=== PATIENT | male | born 1970 | race Two or more races ===

== ENCOUNTER 2021-11-04 14:29 | Inpatient (IN) | payer MEDICAID, OTHER ==
[~2021-11-04] VITALS: Ht 175.3 cm; Wt 109.0 kg
[2021-11-04] MEDS ORDERED: SODIUM CHLORIDE 0.9% 1,000 ML IV ONE ×2 (16:45→18:00)
[2021-11-04] MEDS ORDERED: ACETAMINOPHEN 325 MG TAB PO ONE (16:45)
[2021-11-04] MEDS ORDERED: ONDANSETRON HCL 4 MG/2 ML VIAL ONE (17:10)
[2021-11-04] MEDS ORDERED: ONDANSETRON HCL 4 MG/2 ML VIAL IV ONE (17:15)
[2021-11-04 18:22] LABS: Basophils # (auto) 0 10 ^3/uL (0-0.2); Eosinophils # (auto) 0.1 10 ^3/uL (0-0.8); Hematocrit 34.6 % (41.0-53.0); Lymphocytes # (auto) 0.3 10 ^3/uL (0.4-5.4); Neutrophils # (auto) 15.5 10 ^3/uL (1.6-8.6); Neutrophils % (auto) 95.6 % (37.0-80.0); White Blood Cell 16.2 10^3/uL (4.4-10.8)
[2021-11-04 18:23] LABS: Basophils % (auto) 0.1 % (0.0-2.0); Eosinophils % (auto) 0.3 % (0.0-7.0); Hemoglobin 11.3 g/dL (13.5-17.5); Lymphocytes % (auto) 1.6 % (10.0-50.0); Mean Corpuscular Hemoglobin 25.7 pg (28.0-32.0); Mean Corpuscular Hgb Conc. 32.8 g/dL (32.0-36.0); Mean Corpuscular Volume 78.3 fL (80.0-100.0); Monocytes # (auto) 0.4 10 ^3/uL (0-1.3); Monocytes % (auto) 2.4 % (0.0-12.0); Red Blood Cells 4.41 10^6/uL (4.5-5.90)
[2021-11-04 18:30] LABS: Calcium 7.4 mg/dL (8.5-10.1); Potassium 4.1 mmol/L (3.5-5.1)
[2021-11-04 18:39] LABS: BUN/Creatinine Ratio 14.4; Bilirubin, Total 0.5 mg/dL (0.2-1.0); CRP High Sensitivity 17.7 mg/dL (< 0.3); Total Protein 6.2 g/dL (6.4-8.2)
[2021-11-04 18:48] LABS: Urine Amorphous Crystal MOD /hpf (None Seen); Urine Bacteria FEW /hpf (None Seen); Urine Blood 2+ /uL (Negative); Urine Mucus FEW (None Seen); Urine Specific Gravity 1.027 (1.001-1.035); Urine WBC <1 /hpf (0 - 3)
[2021-11-04] MEDS ORDERED: cefTRIAXone 1GM/50ML D5W 50 ML IV ONE (19:30)
[2021-11-04] MEDS ORDERED: AZITHROMYCIN 500MG/ 250ML 250 ML IV ONE (19:30)
[2021-11-04] MEDS ORDERED: NITROGLYCERIN 0.4 MG SL TAB SL PRN (22:15)
[2021-11-04] MEDS ORDERED: MORPHINE SULFATE INJECTION 2 MG/ML SYRG IV PRN (22:15)
[2021-11-04] MEDS ORDERED: REMDESIVIR PER PHARMACY 0 ML IV SCH (22:15)
[2021-11-04] MEDS: SODIUM CHLORIDE 0.9% 1,000 ML IV SCH (22:44)
[2021-11-04] MEDS: HYDROcodone-ACET 5/325MG TAB PO PRN (23:31)
[2021-11-05] MEDS: PIPERACILLIN-TAZOB 2.25GM 50 ML IV SCH ×2 (03:14→06:10)
[2021-11-05] MEDS ORDERED: CLINDAMYCIN 900MG IV 50 ML IV SCH (06:00)
[2021-11-05] MEDS: HEPARIN SODIUM (PORCINE) 5000 UNITS/ML 1ML VIAL SC SCH ×3 (06:16→21:55)
[2021-11-05] MEDS ORDERED: DexAMETHasone SOD PHOS 10MG/1ML VIAL INJ IV SCH (10:00)
[2021-11-05 10:50] LABS: Basophils # (auto) 0 10 ^3/uL (0-0.2); Eosinophils # (auto) 0.3 10 ^3/uL (0-0.8); Eosinophils % (auto) 2.2 % (0.0-7.0); Hematocrit 32.6 % (41.0-53.0); Hemoglobin 11.1 g/dL (13.5-17.5); Mean Corpuscular Hemoglobin 26.2 pg (28.0-32.0); Monocytes # (auto) 0.4 10 ^3/uL (0-1.3); White Blood Cell 11.4 10^3/uL (4.4-10.8)
[2021-11-05 10:52] LABS: Basophils % (auto) 0.2 % (0.0-2.0); Lymphocytes # (auto) 0.5 10 ^3/uL (0.4-5.4); Lymphocytes % (auto) 4.5 % (10.0-50.0); Mean Corpuscular Hgb Conc. 34.1 g/dL (32.0-36.0); Monocytes % (auto) 3.4 % (0.0-12.0); Neutrophils # (auto) 10.3 10 ^3/uL (1.6-8.6); Neutrophils % (auto) 89.7 % (37.0-80.0); Red Blood Cells 4.23 10^6/uL (4.5-5.90); Red Cell Distribution Width 15.6 % (11.8-14.3)
[2021-11-05 11:06] LABS: Albumin 2.1 g/dL (3.4-5.0); Calcium 7.3 mg/dL (8.5-10.1); Potassium 4.1 mmol/L (3.5-5.1)
[2021-11-05 11:12] LABS: BUN/Creatinine Ratio 23.6; Bilirubin, Total 0.5 mg/dL (0.2-1.0); Total Protein 5.9 g/dL (6.4-8.2)
[2021-11-05] MEDS: ZINC SULFATE 220mg CAP or TAB PO SCH (11:29)
[2021-11-05] MEDS: ASCORBIC ACID 500 MG TAB PO SCH ×2 (11:40→21:54)
[2021-11-05] MEDS ORDERED: VANCOMYCIN PER PHARMACY 0 MG IV SCH (12:15)
[2021-11-05] MEDS: SODIUM CHLORIDE 0.9% 1,000 ML IV SCH ×2 (13:13→17:13)
[2021-11-05] MEDS: VANCOMYCIN 1GM/250ML 250 ML IV SCH (13:39)
[2021-11-05] MEDS: HYDROcodone-ACET 5/325MG TAB PO PRN (15:35)
[2021-11-05 15:37] VITALS: BP 132/64
[2021-11-05 17:10] VITALS: BP 132/64
[2021-11-05 22:00] VITALS: BP 101/49
[2021-11-05] MEDS ORDERED: ACETAMINOPHEN 325 MG TAB PO PRN (22:00)
[2021-11-05] MEDS: levoFLOXacin 500MG 100 ML IV SCH (22:30)
[2021-11-06] MEDS: SODIUM CHLORIDE 0.9% 1,000 ML IV SCH ×2 (01:40→12:49)
[2021-11-06] MEDS: VANCOMYCIN 1GM/250ML 250 ML IV SCH ×2 (01:40→12:49)
[2021-11-06] MEDS: HYDROcodone-ACET 5/325MG TAB PO PRN ×3 (04:15→17:26)
[2021-11-06 05:00] VITALS: BP 109/60
[2021-11-06] MEDS: HEPARIN SODIUM (PORCINE) 5000 UNITS/ML 1ML VIAL SC SCH ×2 (06:21→12:53)
[2021-11-06 08:00] LABS: Basophils # (auto) 0 10 ^3/uL (0-0.2); Eosinophils # (auto) 0.2 10 ^3/uL (0-0.8); Monocytes # (auto) 0.6 10 ^3/uL (0-1.3); White Blood Cell 9.4 10^3/uL (4.4-10.8)
[2021-11-06 08:04] LABS: Basophils % (auto) 0.2 % (0.0-2.0); Eosinophils % (auto) 2.4 % (0.0-7.0); Hematocrit 29.1 % (41.0-53.0); Hemoglobin 10.2 g/dL (13.5-17.5); Lymphocytes # (auto) 0.7 10 ^3/uL (0.4-5.4); Lymphocytes % (auto) 7.9 % (10.0-50.0); Mean Corpuscular Hemoglobin 26.8 pg (28.0-32.0); Mean Corpuscular Hgb Conc. 35.1 g/dL (32.0-36.0); Mean Corpuscular Volume 76.3 fL (80.0-100.0); Monocytes % (auto) 5.9 % (0.0-12.0); Neutrophils # (auto) 7.9 10 ^3/uL (1.6-8.6); Neutrophils % (auto) 83.6 % (37.0-80.0); Red Blood Cells 3.81 10^6/uL (4.5-5.90); Red Cell Distribution Width 16.1 % (11.8-14.3)
[2021-11-06 08:41] VITALS: BP 111/60
[2021-11-06] MEDS: ASCORBIC ACID 500 MG TAB PO SCH (08:41)
[2021-11-06] MEDS: ONDANSETRON HCL 4 MG/2 ML VIAL IV PRN (08:41)
[2021-11-06] MEDS: levoFLOXacin 500MG 100 ML IV SCH (08:42)
[2021-11-06] MEDS: ZINC SULFATE 220mg CAP or TAB PO SCH (11:10)
[2021-11-06 13:00] VITALS: BP 118/66
[2021-11-06 17:00] VITALS: BP 101/61
[2021-11-06 22:00] VITALS: BP 131/57
[2021-11-07] MEDS: ASCORBIC ACID 500 MG TAB PO SCH ×3 (01:16→23:26)
[2021-11-07] MEDS: VANCOMYCIN 1GM/250ML 250 ML IV SCH ×3 (01:17→23:40)
[2021-11-07] MEDS: SODIUM CHLORIDE 0.9% 1,000 ML IV SCH ×2 (01:18→09:28)
[2021-11-07] MEDS: HEPARIN SODIUM (PORCINE) 5000 UNITS/ML 1ML VIAL SC SCH ×4 (01:19→23:26)
[2021-11-07 04:57] VITALS: BP 114/72
[2021-11-07 05:37] LABS: Basophils # (auto) 0 10 ^3/uL (0-0.2); Eosinophils # (auto) 0.4 10 ^3/uL (0-0.8); Mean Corpuscular Volume 77.5 fL (80.0-100.0); Monocytes # (auto) 0.6 10 ^3/uL (0-1.3); Neutrophils # (auto) 5.8 10 ^3/uL (1.6-8.6); Red Cell Distribution Width 16.4 % (11.8-14.3); White Blood Cell 7.5 10^3/uL (4.4-10.8)
[2021-11-07 05:42] LABS: Basophils % (auto) 0.4 % (0.0-2.0); Eosinophils % (auto) 4.9 % (0.0-7.0); Hematocrit 32.8 % (41.0-53.0); Lymphocytes # (auto) 0.8 10 ^3/uL (0.4-5.4); Mean Corpuscular Hemoglobin 26.1 pg (28.0-32.0); Mean Corpuscular Hgb Conc. 33.6 g/dL (32.0-36.0); Monocytes % (auto) 7.6 % (0.0-12.0); Neutrophils % (auto) 77.1 % (37.0-80.0); Red Blood Cells 4.24 10^6/uL (4.5-5.90)
[2021-11-07 06:00] LABS: Calcium 8.1 mg/dL (8.5-10.1); Potassium 3.8 mmol/L (3.5-5.1)
[2021-11-07 06:02] LABS: BUN/Creatinine Ratio 21.1
[2021-11-07 09:00] VITALS: BP 120/73
[2021-11-07] MEDS: ZINC SULFATE 220mg CAP or TAB PO SCH (09:27)
[2021-11-07] MEDS: levoFLOXacin 500MG 100 ML IV SCH (09:27)
[2021-11-07] MEDS: ONDANSETRON HCL 4 MG/2 ML VIAL IV PRN (09:27)
[2021-11-07] MEDS: HYDROcodone-ACET 5/325MG TAB PO PRN (09:28)
[2021-11-07 13:00] VITALS: BP 132/78
[2021-11-07 16:41] VITALS: BP 127/72
[2021-11-07] MEDS: MORPHINE SULFATE INJECTION 2 MG/ML SYRG IV PRN (16:55)
[2021-11-07 22:00] VITALS: BP 114/75
[2021-11-08] MEDS: HEPARIN SODIUM (PORCINE) 5000 UNITS/ML 1ML VIAL SC SCH ×2 (06:00→15:56)
[2021-11-08 08:35] LABS: Red Cell Distribution Width 16.3 % (11.8-14.3)
[2021-11-08 08:36] LABS: Hematocrit 33.3 % (41.0-53.0); Hemoglobin 11.4 g/dL (13.5-17.5); Mean Corpuscular Hemoglobin 26.3 pg (28.0-32.0); Mean Corpuscular Hgb Conc. 34.2 g/dL (32.0-36.0); Mean Corpuscular Volume 76.9 fL (80.0-100.0); Red Blood Cells 4.33 10^6/uL (4.5-5.90); White Blood Cell 7.5 10^3/uL (4.4-10.8)
[2021-11-08 08:38] LABS: Basophils % (manual) 0 (0.0-2.0); Blast Cells 0; Metamyelocytes % 0; Promyelocytes % 0; Reactive Lymphocytes 0
[2021-11-08 08:39] LABS: Potassium 3.8 mmol/L (3.5-5.1)
[2021-11-08 08:40] LABS: INR 1.21 (0.9-1.15); Partial Thromboplastin Time 33.6 sec (23.6-33.0)
[2021-11-08 08:46] LABS: BUN/Creatinine Ratio 16.4; Calcium 7.9 mg/dL (8.5-10.1)
[2021-11-08 09:00] VITALS: BP 120/81
[2021-11-08 09:20] LABS: Band Neutrophils % (manual) 5; Eosinophils % (manual) 4 (0-7); Lymphocytes % (manual) 15 (10.0-50.0); Monocytes % (manual) 9 (0-12); Myelocytes % 1
[2021-11-08] MEDS: VANCOMYCIN 1GM/250ML 250 ML IV SCH ×2 (09:33→18:47)
[2021-11-08] MEDS: levoFLOXacin 500MG 100 ML IV SCH (09:34)
[2021-11-08] MEDS: ZINC SULFATE 220mg CAP or TAB PO SCH (09:34)
[2021-11-08] MEDS: ASCORBIC ACID 500 MG TAB PO SCH (09:34)
[2021-11-08] MEDS: HYDROcodone-ACET 5/325MG TAB PO PRN (09:39)
[2021-11-08 12:37] VITALS: BP 126/78
[2021-11-08 17:00] VITALS: BP 121/72
[2021-11-08] MEDS ORDERED: LIDOCAINE 1% (LOCAL ANESTH.) PF 5ml SDV ID ONE (19:15)
[2021-11-08 22:00] VITALS: BP 122/73
[2021-11-09] MEDS: SODIUM CHLOR 0.9% PF (SALINE LOCK) 10ML VIAL/SYR IV SCH ×3 (00:05→22:20)
[2021-11-09] MEDS: ASCORBIC ACID 500 MG TAB PO SCH ×3 (00:05→22:20)
[2021-11-09] MEDS: HEPARIN SODIUM (PORCINE) 5000 UNITS/ML 1ML VIAL SC SCH ×4 (00:06→22:02)
[2021-11-09] MEDS: HYDROcodone-ACET 5/325MG TAB PO PRN ×2 (00:15→10:42)
[2021-11-09 05:25] VITALS: BP 110/75
[2021-11-09] MEDS: VANCOMYCIN 1GM/250ML 250 ML IV SCH ×3 (05:51→22:20)
[2021-11-09 05:53] LABS: Basophils # (auto) 0.1 10 ^3/uL (0-0.2); Eosinophils # (auto) 0.4 10 ^3/uL (0-0.8); Eosinophils % (auto) 6.1 % (0.0-7.0); Hematocrit 31.4 % (41.0-53.0); Hemoglobin 10.7 g/dL (13.5-17.5); Lymphocytes # (auto) 0.8 10 ^3/uL (0.4-5.4); Lymphocytes % (auto) 13.9 % (10.0-50.0); Mean Corpuscular Hemoglobin 26.1 pg (28.0-32.0); Mean Corpuscular Hgb Conc. 33.9 g/dL (32.0-36.0); Monocytes # (auto) 0.8 10 ^3/uL (0-1.3); Monocytes % (auto) 13.8 % (0.0-12.0); Neutrophils % (auto) 65.2 % (37.0-80.0); Nucleated Red Blood Cells % 0.1 %; Red Blood Cells 4.08 10^6/uL (4.5-5.90); Red Cell Distribution Width 16.2 % (11.8-14.3); White Blood Cell 6.1 10^3/uL (4.4-10.8)
[2021-11-09 06:35] LABS: Sodium 139 mmol/L (136-145)
[2021-11-09 06:36] LABS: Anion Gap 10 (5-15); BUN/Creatinine Ratio 16.1; Blood Urea Nitrogen 9 mg/dL (7-18); Calcium 7.9 mg/dL (8.5-10.1); Carbon Dioxide 22 mmol/L (21-32); Chloride 107 mmol/L (98-107); GFR African American 197 mL/min; GFR Non-African American 163 mL/min; Glucose 109 mg/dL (74-106); Potassium 3.3 mmol/L (3.5-5.1)
[2021-11-09 09:00] VITALS: BP 124/64
[2021-11-09] MEDS: ZINC SULFATE 220mg CAP or TAB PO SCH (10:34)
[2021-11-09] MEDS: levoFLOXacin 500MG 100 ML IV SCH (10:34)
[2021-11-09 13:00] VITALS: BP 117/76
[2021-11-09 20:39] VITALS: BP 118/67
[2021-11-09] MEDS: ONDANSETRON HCL 4 MG/2 ML VIAL IV PRN (23:19)
[2021-11-10] VITALS (9 sets, daily range): BP systolic 101–123; BP diastolic 65–76
[2021-11-10] MEDS: HEPARIN SODIUM (PORCINE) 5000 UNITS/ML 1ML VIAL SC SCH ×3 (05:53→21:30)
[2021-11-10] MEDS: VANCOMYCIN 1GM/250ML 250 ML IV SCH (08:22)
[2021-11-10] MEDS ORDERED: PROPOFOL 10 MG/ML 20 ML IV ONE (08:28)
[2021-11-10] MEDS ORDERED: ONDANSETRON HCL 4 MG/2 ML VIAL ONE (08:28)
[2021-11-10] MEDS ORDERED: fentaNYL CITRATE 100 MCG/2 ML VL ONE (08:28)
[2021-11-10] MEDS ORDERED: MIDAZOLAM HCL 2MG/2ML 2ml VIAL (1mg/ml) ONE (08:28)
[2021-11-10 09:13] LABS: Eosinophils # (auto) 0.2 10 ^3/uL (0-0.8); Eosinophils % (auto) 2.1 % (0.0-7.0); Lymphocytes # (auto) 0.8 10 ^3/uL (0.4-5.4); Monocytes # (auto) 0.9 10 ^3/uL (0-1.3); Nucleated Red Blood Cells % 0.1 %; White Blood Cell 7.7 10^3/uL (4.4-10.8)
[2021-11-10 09:14] LABS: Basophils # (auto) 0 10 ^3/uL (0-0.2); Basophils % (auto) 0.6 % (0.0-2.0); Hematocrit 33.9 % (41.0-53.0); Hemoglobin 11.5 g/dL (13.5-17.5); Lymphocytes % (auto) 10.5 % (10.0-50.0); Mean Corpuscular Hemoglobin 26.1 pg (28.0-32.0); Mean Corpuscular Hgb Conc. 33.8 g/dL (32.0-36.0); Mean Corpuscular Volume 77.3 fL (80.0-100.0); Monocytes % (auto) 11.2 % (0.0-12.0); Neutrophils # (auto) 5.8 10 ^3/uL (1.6-8.6); Neutrophils % (auto) 75.6 % (37.0-80.0); Red Blood Cells 4.38 10^6/uL (4.5-5.90); Red Cell Distribution Width 16.8 % (11.8-14.3)
[2021-11-10 09:36] LABS: BUN/Creatinine Ratio 14.3; Potassium 3.6 mmol/L (3.5-5.1)
[2021-11-10] MEDS ORDERED: SODIUM CHLORIDE LOCK 10 ML ONE (09:56)
[2021-11-10] MEDS: ASCORBIC ACID 500 MG TAB PO SCH ×2 (10:00→21:27)
[2021-11-10] MEDS ORDERED: BUPIVACAINE 0.5% P/F INJ 10 ML VIAL ONE (10:00)
[2021-11-10] MEDS: ZINC SULFATE 220mg CAP or TAB PO SCH (10:00)
[2021-11-10] MEDS: MORPHINE SULFATE INJECTION 2 MG/ML SYRG IV PRN ×3 (10:10→21:29)
[2021-11-10] MEDS: levoFLOXacin 500MG 100 ML IV SCH (10:11)
[2021-11-10] MEDS ORDERED: ceFAZolin 1GM VL ONE ×2 (10:41→11:26)
[2021-11-10] MEDS ORDERED: MORPHINE SULFATE 4 MG/ML SYR/VIAL IV PRN (10:45)
[2021-11-10] MEDS ORDERED: HYDROmorphone HCL 2 MG/ML VL IV PRN (10:45)
[2021-11-10] MEDS ORDERED: METOCLOPRAMIDE HCL 5MG/ml INJ 2ml VIAL IV PRN (10:45)
[2021-11-10] MEDS ORDERED: NEOMYCIN-BACITRACIN-POLYM 15GM TOP OINT TOP ONE (12:10)
[2021-11-10] MEDS: SODIUM CHLOR 0.9% PF (SALINE LOCK) 10ML VIAL/SYR IV SCH ×2 (14:41→21:27)
[2021-11-10] MEDS: HYDROcodone-ACET 5/325MG TAB PO PRN (17:04)
[2021-11-11 05:00] VITALS: BP 106/68
[2021-11-11] MEDS: HEPARIN SODIUM (PORCINE) 5000 UNITS/ML 1ML VIAL SC SCH ×3 (05:26→23:07)
[2021-11-11] MEDS: MORPHINE SULFATE INJECTION 2 MG/ML SYRG IV PRN ×3 (05:28→23:09)
[2021-11-11 08:56] LABS: Eosinophils # (auto) 0.1 10 ^3/uL (0-0.8); Lymphocytes # (auto) 0.8 10 ^3/uL (0.4-5.4); Mean Corpuscular Hemoglobin 26.2 pg (28.0-32.0); Neutrophils # (auto) 6.7 10 ^3/uL (1.6-8.6); White Blood Cell 8.8 10^3/uL (4.4-10.8)
[2021-11-11 08:58] LABS: Basophils # (auto) 0.1 10 ^3/uL (0-0.2); Basophils % (auto) 0.6 % (0.0-2.0); Eosinophils % (auto) 0.6 % (0.0-7.0); Hematocrit 29.8 % (41.0-53.0); Hemoglobin 10.2 g/dL (13.5-17.5); Lymphocytes % (auto) 9.3 % (10.0-50.0); Mean Corpuscular Hgb Conc. 34.2 g/dL (32.0-36.0); Mean Corpuscular Volume 76.7 fL (80.0-100.0); Monocytes # (auto) 1.2 10 ^3/uL (0-1.3); Monocytes % (auto) 13.9 % (0.0-12.0); Neutrophils % (auto) 75.6 % (37.0-80.0); Nucleated Red Blood Cells % 0.2 %; Red Blood Cells 3.89 10^6/uL (4.5-5.90); Red Cell Distribution Width 16.7 % (11.8-14.3)
[2021-11-11 09:00] VITALS: BP 130/64
[2021-11-11] MEDS: ZINC SULFATE 220mg CAP or TAB PO SCH (09:11)
[2021-11-11] MEDS: ASCORBIC ACID 500 MG TAB PO SCH ×2 (09:11→23:05)
[2021-11-11] MEDS: CEFTRIAXONE SODIUM 2 GM in D5W 5% 50 ML IV SCH (09:12)
[2021-11-11] MEDS: HYDROcodone-ACET 5/325MG TAB PO PRN ×2 (09:12)
[2021-11-11 09:50] LABS: BUN/Creatinine Ratio 19.7; Calcium 7.8 mg/dL (8.5-10.1); Potassium 3.2 mmol/L (3.5-5.1)
[2021-11-11] MEDS: SODIUM CHLOR 0.9% PF (SALINE LOCK) 10ML VIAL/SYR IV SCH ×2 (10:00→22:46)
[2021-11-11] MEDS: ONDANSETRON HCL 4 MG/2 ML VIAL IV PRN (10:36)
[2021-11-11 12:35] VITALS: BP 125/63
[2021-11-11] MEDS: VANCOMYCIN 1GM/250ML 250 ML IV SCH ×2 (12:45→22:57)
[2021-11-11 16:53] VITALS: BP 111/68
[2021-11-11 23:46] VITALS: BP 110/73
[2021-11-12 05:07] LABS: Basophils # (auto) 0.1 10 ^3/uL (0-0.2); Basophils % (auto) 0.7 % (0.0-2.0); Eosinophils # (auto) 0 10 ^3/uL (0-0.8); Eosinophils % (auto) 0.6 % (0.0-7.0); Hematocrit 30.7 % (41.0-53.0); Hemoglobin 10.6 g/dL (13.5-17.5); Lymphocytes # (auto) 0.7 10 ^3/uL (0.4-5.4); Lymphocytes % (auto) 9.5 % (10.0-50.0); Mean Corpuscular Hemoglobin 26.6 pg (28.0-32.0); Mean Corpuscular Hgb Conc. 34.4 g/dL (32.0-36.0); Mean Corpuscular Volume 77.3 fL (80.0-100.0); Monocytes # (auto) 1.2 10 ^3/uL (0-1.3); Monocytes % (auto) 15.9 % (0.0-12.0); Neutrophils # (auto) 5.7 10 ^3/uL (1.6-8.6); Neutrophils % (auto) 73.3 % (37.0-80.0); Nucleated Red Blood Cells % 0.1 %; Red Blood Cells 3.97 10^6/uL (4.5-5.90); Red Cell Distribution Width 17.3 % (11.8-14.3); White Blood Cell 7.7 10^3/uL (4.4-10.8)
[2021-11-12 05:14] VITALS: BP 117/64
[2021-11-12 05:24] LABS: BUN/Creatinine Ratio 20.3; Calcium 7.7 mg/dL (8.5-10.1)
[2021-11-12] MEDS: HEPARIN SODIUM (PORCINE) 5000 UNITS/ML 1ML VIAL SC SCH ×3 (06:45→22:27)
[2021-11-12] MEDS: VANCOMYCIN 1GM/250ML 250 ML IV SCH ×2 (06:46→17:25)
[2021-11-12] MEDS: HYDROcodone-ACET 5/325MG TAB PO PRN (06:47)
[2021-11-12 09:00] VITALS: BP 89/47
[2021-11-12] MEDS: ZINC SULFATE 220mg CAP or TAB PO SCH (10:19)
[2021-11-12] MEDS: ASCORBIC ACID 500 MG TAB PO SCH ×2 (10:19→22:27)
[2021-11-12] MEDS: SODIUM CHLOR 0.9% PF (SALINE LOCK) 10ML VIAL/SYR IV SCH ×2 (10:19→22:28)
[2021-11-12] MEDS: CEFTRIAXONE SODIUM 2 GM in D5W 5% 50 ML IV SCH (10:25)
[2021-11-12] MEDS: ONDANSETRON HCL 4 MG/2 ML VIAL IV PRN ×2 (11:43→22:28)
[2021-11-12 13:00] VITALS: BP 117/68
[2021-11-12 17:00] VITALS: BP 102/63
[2021-11-12 22:00] VITALS: BP 101/61
[2021-11-13] MEDS: VANCOMYCIN 1GM/250ML 250 ML IV SCH ×2 (03:49→13:46)
[2021-11-13 05:00] VITALS: BP 106/64
[2021-11-13] MEDS: HEPARIN SODIUM (PORCINE) 5000 UNITS/ML 1ML VIAL SC SCH ×2 (06:26→13:51)
[2021-11-13 08:39] VITALS: BP 128/69
[2021-11-13] MEDS: SODIUM CHLOR 0.9% PF (SALINE LOCK) 10ML VIAL/SYR IV SCH (09:33)
[2021-11-13] MEDS: CEFTRIAXONE SODIUM 2 GM in D5W 5% 50 ML IV SCH (09:33)
[2021-11-13] MEDS: ASCORBIC ACID 500 MG TAB PO SCH (09:33)
[2021-11-13] MEDS: ZINC SULFATE 220mg CAP or TAB PO SCH (09:33)
[2021-11-13 09:40] LABS: BUN/Creatinine Ratio 20.8; Calcium 7.8 mg/dL (8.5-10.1)
[2021-11-13 09:43] LABS: Basophils # (auto) 0 10 ^3/uL (0-0.2); Basophils % (auto) 0.7 % (0.0-2.0); Eosinophils # (auto) 0.1 10 ^3/uL (0-0.8); Eosinophils % (auto) 1.1 % (0.0-7.0); Hematocrit 29.9 % (41.0-53.0); Hemoglobin 10.3 g/dL (13.5-17.5); Lymphocytes # (auto) 0.7 10 ^3/uL (0.4-5.4); Lymphocytes % (auto) 10.8 % (10.0-50.0); Mean Corpuscular Hemoglobin 26.4 pg (28.0-32.0); Mean Corpuscular Hgb Conc. 34.2 g/dL (32.0-36.0); Mean Corpuscular Volume 77.2 fL (80.0-100.0); Monocytes # (auto) 1.2 10 ^3/uL (0-1.3); Monocytes % (auto) 17.3 % (0.0-12.0); Neutrophils # (auto) 4.7 10 ^3/uL (1.6-8.6); Neutrophils % (auto) 70.1 % (37.0-80.0); Red Blood Cells 3.88 10^6/uL (4.5-5.90); Red Cell Distribution Width 17.3 % (11.8-14.3); White Blood Cell 6.8 10^3/uL (4.4-10.8)
[2021-11-13 09:54] LABS: Potassium 2.9 mmol/L (3.5-5.1)
[2021-11-13] MEDS ORDERED: POTASSIUM CHL 20 Meq TABLET PO ONE (11:00)
[2021-11-13] MEDS: ONDANSETRON HCL 4 MG/2 ML VIAL IV PRN (11:27)
[2021-11-13] MEDS: POTASSIUM CHL 20MEQ/50ML 50 ML IV SCH ×2 (11:27→13:45)
[2021-11-13 13:00] VITALS: BP 124/62
[2021-11-13 17:00] VITALS: BP 111/75
== END 2021-11-13 19:55 | DRG 364 ==
LOC: ER 14:29 → EDBD 14:29 → TELE 22:08 → CENTRAL 11-05 15:09 → TELE-CENTR 11-05 19:26
PROVIDERS: ADMIT Hospitalist; ATTEND Hospitalist
PROC: 0WJG4ZZ Inspection of Peritoneal Cavity, Percutaneous Endoscopic Approach (ICD-10-PCS; 2021-11-07)
PROC: 02HV33Z Insertion of Infusion Device into Superior Vena Cava, Percutaneous Approach (ICD-10-PCS; 2021-11-08)
PROC: B548ZZA Ultrasonography of Superior Vena Cava, Guidance (ICD-10-PCS; 2021-11-08)
PROC: 0QBL0ZZ Excision of Right Tarsal, Open Approach (ICD-10-PCS; principal; 2021-11-10 10:57)
DX: L03.115 Cellulitis of right lower limb (principal); J18.9 Pneumonia, unspecified organism; E46 Unspecified protein-calorie malnutrition; L97.519 Non-pressure chronic ulcer of other part of right foot with unspecified severity; M86.8X7 Other osteomyelitis, ankle and foot; E86.0 Dehydration; E66.01 Morbid (severe) obesity due to excess calories; J98.11 Atelectasis; L03.116 Cellulitis of left lower limb; Z20.822 Contact with and (suspected) exposure to COVID-19; Z53.8 Procedure and treatment not carried out for other reasons; I10 Essential (primary) hypertension; I89.0 Lymphedema, not elsewhere classified; S81.801A Unspecified open wound, right lower leg, initial encounter; X58.XXXA Exposure to other specified factors, initial encounter; Y93.89 Activity, other specified; Z74.01 Bed confinement status; Z68.37 Body mass index [BMI] 37.0-37.9, adult; Y92.89 Other specified places as the place of occurrence of the external cause; Y99.8 Other external cause status
CPT/HCPCS: 36415; 36569; 71045; 73720; 78582; 80048; 80053; 80202; 81001; 82565; 82728; 83605; 83880; 84484; 85007; 85025; 85027; 85379; 85610; 85730; 86141; 86850; 86900; 86901; 87040; 87070; 87075; 87081; 87205; 87426; 93005; 93306; 93926; 93970; 96361; 96365; 96375; 97110; 97163; 97530; 99291; A4565; G0378; J0690; J0696; J1956; J2250; J2405; J2543; J2704; J3490; J7060

== ENCOUNTER 2022-08-06 14:54 | Inpatient (IN) | payer MEDICAID ==
[~2022-08-06] VITALS: Ht 175.3 cm; Wt 69.7 kg
[2022-08-06] MEDS ORDERED: cefTRIAXone 1GM/50ML D5W 50 ML IV ONE (22:00)
[2022-08-06] MEDS ORDERED: SODIUM CHLORIDE 0.9% 1,000 ML IV ONE ×2 (22:00)
[2022-08-06] MEDS ORDERED: ONDANSETRON HCL 4 MG/2 ML VIAL IV PRN (23:00)
[2022-08-06] MEDS ORDERED: DEXTROSE (50%) 50ML SYRG IV PRN (23:00)
[2022-08-06] MEDS ORDERED: ACETAMINOPHEN 325 MG TAB PO PRN (23:00)
[2022-08-06] MEDS ORDERED: DOCUSATE SOD 100 MG CAP PO PRN (23:00)
[2022-08-06] MEDS: SODIUM CHLORIDE 0.9% 1,000 ML IV SCH (23:00)
[2022-08-06 23:08] LABS: Basophils # (auto) 0 10 ^3/uL (0-0.2); Basophils % (auto) 0.4 % (0.0-2.0); Eosinophils # (auto) 0 10 ^3/uL (0-0.8); Eosinophils % (auto) 0.2 % (0.0-7.0); Lymphocytes # (auto) 0.7 10 ^3/uL (0.4-5.4); Lymphocytes % (auto) 9.8 % (10.0-50.0); Mean Corpuscular Hemoglobin 27.9 pg (28.0-32.0); Mean Corpuscular Hgb Conc. 34.1 g/dL (32.0-36.0); Mean Corpuscular Volume 81.8 fL (80.0-100.0); Monocytes # (auto) 0.5 10 ^3/uL (0-1.3); Monocytes % (auto) 7.5 % (0.0-12.0); Neutrophils # (auto) 5.9 10 ^3/uL (1.6-8.6); Neutrophils % (auto) 82.1 % (37.0-80.0); Nucleated Red Blood Cells % 0.1 %; Red Blood Cells 5.02 10^6/uL (4.5-5.90); Red Cell Distribution Width 15.7 % (11.8-14.3); White Blood Cell 7.2 10^3/uL (4.4-10.8)
[2022-08-06 23:22] LABS: INR 0.98 (0.9-1.15); Partial Thromboplastin Time 29.7 sec (24.6-33.4)
[2022-08-06 23:26] LABS: Albumin 3.2 g/dL (3.4-5.0); Calcium 8.5 mg/dL (8.5-10.1); Potassium 3.9 mmol/L (3.5-5.1)
[2022-08-06 23:29] LABS: Bilirubin, Total 0.4 mg/dL (0.2-1.0); Total Protein 7.3 g/dL (6.4-8.2)
[2022-08-07] MEDS ORDERED: NITROGLYCERIN 0.4 MG SL TAB SL PRN
[2022-08-07] MEDS ORDERED: MORPHINE SULFATE INJ 2 MG/ml SYRG IV PRN
[2022-08-07] MEDS: HYDROcodone-ACET 5/325MG TAB PO PRN (02:50)
[2022-08-07 06:39] LABS: Basophils # (auto) 0 10 ^3/uL (0-0.2); Basophils % (auto) 0.6 % (0.0-2.0); Eosinophils # (auto) 0 10 ^3/uL (0-0.8); Eosinophils % (auto) 0.6 % (0.0-7.0); Hematocrit 37.4 % (41.0-53.0); Lymphocytes # (auto) 0.8 10 ^3/uL (0.4-5.4); Lymphocytes % (auto) 16.8 % (10.0-50.0); Mean Corpuscular Hgb Conc. 34.6 g/dL (32.0-36.0); Monocytes # (auto) 0.4 10 ^3/uL (0-1.3); Monocytes % (auto) 9.3 % (0.0-12.0); Neutrophils # (auto) 3.3 10 ^3/uL (1.6-8.6); Neutrophils % (auto) 72.7 % (37.0-80.0); Nucleated Red Blood Cells % 0.1 %; Red Blood Cells 4.62 10^6/uL (4.5-5.90); Red Cell Distribution Width 15.8 % (11.8-14.3); White Blood Cell 4.6 10^3/uL (4.4-10.8)
[2022-08-07 06:47] LABS: Calcium 8.4 mg/dL (8.5-10.1); Potassium 3.5 mmol/L (3.5-5.1)
[2022-08-07 06:53] LABS: BUN/Creatinine Ratio 27.6; Bilirubin, Total 0.3 mg/dL (0.2-1.0); Total Protein 6.8 g/dL (6.4-8.2)
[2022-08-07] MEDS: InsuLIN REG 1unit/0.01ml Soln (100units/ml) SC SCH ×4 (07:00→22:00)
[2022-08-07] MEDS: ACCU-CHEK COMFORT CURVE STRIP VI SCH ×4 (07:05→22:47)
[2022-08-07] MEDS: SODIUM CHLORIDE 0.9% 1,000 ML IV SCH ×2 (07:42→07:45)
[2022-08-07 08:03] LABS: Urine Bacteria FEW /hpf (None Seen); Urine Blood Negative /uL (Negative); Urine Budding Yeast MODERATE /hpf (None Seen); Urine Specific Gravity 1.024 (1.001-1.035); Urine WBC 213 /hpf (0 - 3)
[2022-08-07] MEDS: cefTRIAXone 1GM/50ML D5W 50 ML IV SCH (09:58)
[2022-08-07] MEDS: ZINC SULFATE 220mg CAP or TAB PO SCH (10:33)
[2022-08-07] MEDS: ASCORBIC ACID 500 MG TAB PO SCH ×2 (10:33→22:48)
[2022-08-07] MEDS: MULTIPLE VITAMIN TAB PO SCH (10:34)
[2022-08-07] MEDS: MEGESTROL ACET 400MG/10ML ORAL SUSP PO SCH (10:34)
[2022-08-07 13:54] VITALS: BP 109/83
[2022-08-07 16:21] VITALS: BP 109/83
[2022-08-07] MEDS ORDERED: OMNIPAQUE ORAL SOLN 500ml 12mg/ml PO ONE (16:56)
[2022-08-07 17:01] LABS: Cholesterol 159 mg/dL (< 200); HDL Cholesterol 49 mg/dL (40-59); LDL Cholesterol 102 mg/dL (< 100); Triglycerides 110 mg/dL (< 150)
[2022-08-07 17:30] LABS: Carcinoembryonic Antigen 1.5 ng/mL (<5.0 OR =); Free T4 (Free Thyroxine) 1.26 ng/dL (0.89-1.76)
[2022-08-07 19:21] LABS: Folate (Folic Acid) 13.82 ng/mL (5.38-24)
[2022-08-08 00:06] VITALS: BP 111/75
[2022-08-08] MEDS: SODIUM CHLORIDE 0.9% 1,000 ML IV SCH (00:25)
[2022-08-08 05:41] VITALS: BP 112/84
[2022-08-08] MEDS: ACCU-CHEK COMFORT CURVE STRIP VI SCH ×4 (06:13→21:48)
[2022-08-08] MEDS: InsuLIN REG 1unit/0.01ml Soln (100units/ml) SC SCH ×4 (06:13→21:48)
[2022-08-08] MEDS: HYDROcodone-ACET 5/325MG TAB PO PRN ×2 (06:16→20:16)
[2022-08-08] MEDS: cefTRIAXone 1GM/50ML D5W 50 ML IV SCH (08:45)
[2022-08-08] MEDS: MEGESTROL ACET 400MG/10ML ORAL SUSP PO SCH (08:45)
[2022-08-08] MEDS: ZINC SULFATE 220mg CAP or TAB PO SCH (08:45)
[2022-08-08] MEDS: ASCORBIC ACID 500 MG TAB PO SCH ×2 (08:46→21:44)
[2022-08-08] MEDS: MULTIPLE VITAMIN TAB PO SCH (08:46)
[2022-08-08 09:00] VITALS: BP 99/67
[2022-08-08] MEDS ORDERED: LACTULOSE 20Gm/30ML SOLN PO ONE (11:30)
[2022-08-08 12:30] VITALS: BP 105/69
[2022-08-08 17:00] VITALS: BP 107/71
[2022-08-08] MEDS: SENNA 8.6 MG TAB PO SCH (21:44)
[2022-08-08] MEDS: MUPIROCIN 2% OINT 15gm or 22gm FOR MRSA NARES EACHNOSTRI SCH (21:54)
[2022-08-09] VITALS (8 sets, daily range): BP systolic 94–120; BP diastolic 65–78
[2022-08-09] MEDS: ACCU-CHEK COMFORT CURVE STRIP VI SCH ×4 (06:39→21:56)
[2022-08-09] MEDS: InsuLIN REG 1unit/0.01ml Soln (100units/ml) SC SCH ×4 (06:48→21:56)
[2022-08-09] MEDS: cefTRIAXone 1GM/50ML D5W 50 ML IV SCH (08:29)
[2022-08-09] MEDS: SODIUM CHLORIDE 0.9% 1,000 ML IV SCH (09:45)
[2022-08-09] MEDS: SENNA 8.6 MG TAB PO SCH ×2 (10:27→21:23)
[2022-08-09] MEDS: MEGESTROL ACET 400MG/10ML ORAL SUSP PO SCH (10:27)
[2022-08-09] MEDS: MULTIPLE VITAMIN TAB PO SCH (10:27)
[2022-08-09] MEDS: ZINC SULFATE 220mg CAP or TAB PO SCH (10:27)
[2022-08-09] MEDS: ASCORBIC ACID 500 MG TAB PO SCH ×2 (10:27→21:23)
[2022-08-09] MEDS: MUPIROCIN 2% OINT 15gm or 22gm FOR MRSA NARES EACHNOSTRI SCH ×2 (11:58→21:23)
[2022-08-09] MEDS: HYDROcodone-ACET 5/325MG TAB PO PRN ×2 (12:05→21:24)
[2022-08-10] MEDS: SODIUM CHLORIDE 0.9% 1,000 ML IV SCH (02:19)
[2022-08-10 05:00] VITALS: BP 110/74
[2022-08-10] MEDS: ACCU-CHEK COMFORT CURVE STRIP VI SCH ×2 (05:54→11:52)
[2022-08-10] MEDS: InsuLIN REG 1unit/0.01ml Soln (100units/ml) SC SCH ×2 (05:55→12:47)
[2022-08-10 08:00] VITALS: BP_SYST 105; BP_SYST 119; BP_DIAS 70; BP_DIAS 72
[2022-08-10] MEDS: cefTRIAXone 1GM/50ML D5W 50 ML IV SCH (08:32)
[2022-08-10] MEDS: MEGESTROL ACET 400MG/10ML ORAL SUSP PO SCH (09:11)
[2022-08-10] MEDS: MULTIPLE VITAMIN TAB PO SCH (09:11)
[2022-08-10] MEDS: ASCORBIC ACID 500 MG TAB PO SCH (09:11)
[2022-08-10] MEDS: ZINC SULFATE 220mg CAP or TAB PO SCH (10:05)
[2022-08-10] MEDS: SENNA 8.6 MG TAB PO SCH (10:06)
[2022-08-10] MEDS: MUPIROCIN 2% OINT 15gm or 22gm FOR MRSA NARES EACHNOSTRI SCH (10:24)
[2022-08-10 12:00] VITALS: BP 104/70
== END 2022-08-10 15:50 | DRG 421 ==
LOC: EDBD 14:54 → ER 15:04 → OVERFLOW 23:59 → WEST WING 08-07 13:33
PROVIDERS: ADMIT Nurse Practitioner Family; ATTEND Hospitalist
DX: R62.7 Adult failure to thrive (principal); E44.1 Mild protein-calorie malnutrition; E11.40 Type 2 diabetes mellitus with diabetic neuropathy, unspecified; G89.29 Other chronic pain; I10 Essential (primary) hypertension; K59.00 Constipation, unspecified; N39.0 Urinary tract infection, site not specified; M54.9 Dorsalgia, unspecified; M79.604 Pain in right leg; M79.605 Pain in left leg; Z74.01 Bed confinement status; Z68.23 Body mass index [BMI] 23.0-23.9, adult
CPT/HCPCS: 36415; 71045; 71260; 74177; 80053; 80061; 81001; 82306; 82378; 82607; 82746; 82962; 83036; 84154; 84425; 84439; 84443; 84484; 85025; 85379; 85610; 85730; 87081; 87086; 93005; 96361; 96365; G0378; J0696; J1815